=== PATIENT | male | born 1995 | race Caucasian/White ===

== ENCOUNTER 2019-04-28 04:48 | Emergency (ER) | payer SELFPAY ==
[~2019-04-28] VITALS: Ht 180.3 cm; Wt 70.0 kg
[2019-04-28] MEDS ORDERED: LORazepam 2 MG/ML, 1ML IVPush ONE (05:00)
[2019-04-28] MEDS ORDERED: SODIUM CHLORIDE FLUSH 10ML SYR IVF ONE (05:00)
[2019-04-28] MEDS ORDERED: LORazepam 2 MG/ML, 1ML ONE (05:18)
[2019-04-28] MEDS ORDERED: NALOXONE 0.4 MG/ML, 1ML ONE (05:18)
[2019-04-28] MEDS ORDERED: ALBUTEROL/IPRATROPIUM 2.5MG/0.5MG, 3 ML ONE (05:19)
[2019-04-28] MEDS ORDERED: NALOXONE 1 MG/ML, 2ML IVPush ONE (05:30)
[2019-04-28] MEDS: ALBUTEROL/IPRATROPIUM 2.5MG/0.5MG, 3 ML NPPB SCH (05:42)
--- NOTE | 2019-04-28 06:02 | NUR ---
RN to bedside with [facility] waiting, patient had already been transferred into bed. Not sure how well patient stands. Per report, EMS was called by girlfriend because patient was breathing poorly. [facility] was unable to get an accurate spo2 en route because the patient is exhibiting multiple uncontrolled movements. Patient was attached to a monitor. Blood pressure stable, but poor pleth on finger due to uncontrolled movements. Reattached spo2 sensor to ear and accurate pleth acheived. Initially spo2 wnl at 97%. Midlevel provider to bedside. Patient assessed, pupils constricted, hr elevated. Patient initially reports no drug use except marijuana then eventually states smoked "a hit" the previous day of methamphetamine. When assessment complete patient finally stops moving, then spo2 drops to 70%. Patient aroused by RN at bedside and spo2 rises again to 97%. RN completing assessment, nasal cannula attached and placed on 6L initially. Patient conversing in mumble, requiring multiple requests to repeat to get patient to speak with sufficient volume to understand. Patient frequently relaxes, closes eyes, and oxygen dips despite supplemental o2 then when arouses takes initial large breath before resuming normal breathing followed by normal saturations. RN to nursing station, relayed that patients desaturations appear more centrally caused and received order for Narcan (see eMAR). Patient continues to deny opiate use, except administration of narcan resolved need for supplemental o2 (nasal cannula remains, but off at wall) Pupils are no longer pinpoint. Informed provider. Awaiting labs and imaging results.
[2019-04-28 06:15] LABS: BASOPHILS # (AUTO) 0.06 x10^3/uL (0-0.1); BASOPHILS % (AUTO) 1 % (0-1); EOSINOPHILS % (AUTO) 1 % (1-7); LYMPHOCYTES # (AUTO) 3.25 x10^3/uL (1-3.4); LYMPHOCYTES % (AUTO) 32 % (22-44); MD NO; MEAN CORPUSCULAR HEMOGLOBIN 29.3 pg (27.5-34.5); MEAN CORPUSCULAR HGB CONC 33.2 g/dL (33.2-36.2); MEAN CORPUSCULAR VOLUME 88.3 fL (81-97); MEAN PLATELET VOLUME 7.7 fL (7.4-10.4); MONOCYTES # (AUTO) 0.81 x10^3/uL (0.2-0.8); MONOCYTES % (AUTO) 8 % (2-9); NEUTROPHILS # (AUTO) 5.94 x10^3/uL (1.8-6.8); NEUTROPHILS % (AUTO) 59 % (42-75); PLATELET COUNT 342 x10^3/uL (130-400); RED BLOOD COUNT 4.58 x10^6/uL (4.38-5.82); RED CELL DISTRIBUTION WIDTH 13.6 % (9.4-14.8)
[2019-04-28 06:25] LABS: ALBUMIN 3.9 g/dL (3.4-5.0); ANION GAP 7 mmol/L (5-15); CALCIUM 9.2 mg/dL (8.5-10.1); CHLORIDE 107 mmol/L (98-107)
[2019-04-28 06:28] LABS: TROPONIN I < 0.015 ng/mL (0.000-0.045)
--- NOTE | 2019-04-28 06:50 | NUR ---
RN was informed by provider of blood sugar of 60 mg/dl. Patient provided with orange juice and 3 packets of sugar, jeremy crackers and a diet tray was ordered per instructions from provider. Eye witnessed patient drinking orange juice.
--- NOTE | 2019-04-28 06:51 | NUR ---
Gave report to Makayla. Covered interventions performed and plan of care. RNx2 to bedside. Patient introduced to oncoming nurse.
--- NOTE | 2019-04-28 06:52 | NUR ---
Receieved bedside report from VÍCTOR Campos. All questions answered. Pt sitting up on gurney c/o feeling "itchy". Pt states to EDRN, "I am awake the whole time." Pt remains connected to legal director, NIBP cuff, and continous pulse ox monitor. Bedrails up x 2, call light within reach. NADN. No needs expressed at this time.
[2019-04-28] MEDS ORDERED: DEXTROSE 50%, 50ML SYRINGE IVPush ONE (08:00)
--- NOTE | 2019-04-28 08:16 | NUR ---
[facility] 32, EDMD AWARE. MEDICATION PER EM[facility] PROVIDED. PT RESTING ON GURNEY CONNECTED TO NIBP CUFF, CONTINOUS PULSE OX MONITOR, AND NURSE AIDE EVALUATOR. BEDRAILS UP X 2, CALL LIGHT WITHIN REACH, WARM BLANKETS AND MANI HUGGER WARMER PROVIDED. PT AROUSABLE TO VOICE AND FOLLOWS VERBAL DIRECTIONS.
[2019-04-28] MEDS ORDERED: DEXTROSE 10%, 250ML IV ONE (08:30)
--- NOTE | 2019-04-28 08:44 | NUR ---
Pt AOX4 eating provided breakfast tray: 4 orange juices, 1 milk, 2 jeremy cracker packets, cheese egg omlet, oatmeal, and one peanutbutter. Pt feeding self and talking to EDRN. Call light and personal cell phone within reach.
[2019-04-28 09:23] VITALS: BP 104/57
--- NOTE | 2019-04-28 09:25 | NUR ---
Rechecked [facility], please see charting. Obtained VS, please see charting. Pt sitting upright on gurney using cell phone. NADN. No other needs expressed. Call light within reach. Bedrails up x 2.
--- NOTE | 2019-04-28 10:08 | NUR ---
Went to check on patient. Patient and his personal belongings not in the room. ED staff observed pt leaving.
--- NOTE | 2019-04-28 10:25 | NUR ---
[employer] contacted to notify that pt eloped with PIV in place in arm.
--- NOTE | 2019-04-28 10:28 | NUR ---
ED staff design engineer located pt on campus. Pt allowed ED staff design engineer to remove pt's PIV. PIV removed with tip in tact, no signs or symptoms of phlebitis or infiltration observed.
--- NOTE | 2019-04-28 10:28 | NUR ---
[facility] [employer] notified.
--- NOTE | 2019-04-28 10:31 | NUR ---
[employer] notified that pt was located and PIV removed.
--- NOTE | 2019-04-28 10:45 | NUR ---
Silver colored chain necklace left in room by pt. Necklace placed in bag with pt labels and taken to security for safe keeping.
== END 2019-04-28 10:12 | disposition left against medical advice (07) ==
LOC: ED 06:11
DX: E16.2 Hypoglycemia, unspecified (principal); R00.0 Tachycardia, unspecified; R07.89 Other chest pain; R06.00 Dyspnea, unspecified; G92 Toxic encephalopathy; F15.929 Other stimulant use, unspecified with intoxication, unspecified
CPT/HCPCS: 36415; 71045; 80048; 82040; 82962; 83880; 84484; 85025; 85379; 93005; 94640; 96374; 96375; 99291; J2060; J2310; J7620